=== PATIENT | female | born 1985 | race Caucasian/White ===

== ENCOUNTER 2020-07-11 09:18 | Emergency (ER) | payer OTHER ==
[~2020-07-11 09:18] MED LIST: COL-RITE250 MG PO; ECOTRIN81 MG PO; INDERAL TAB 1010 MG PO; LAMICTAL100 MG PO; PERCOCET 7.5-31 EACH PO; PRENATAL VITAM1 EAC3 PO; PROZAC20 MG PO; PROZAC40 MG PO; VISTARIL25 MG PO; ZANTAC150 MG PO; ZOFRAN4 MG PO
[2020-07-11 09:53] LABS: HEMOGLOBIN 15.1 gm/dl (12.3-15.3); RED BLOOD COUNT 4.67 M/UL (4.00-5.10); WHITE BLOOD COUNT 8.7 K/UL (4.5-11.0)
[2020-07-11 10:14] LABS: BUN/CREATININE RATIO 13 (0-10)
[2020-07-25] MEDS ORDERED: LATANOPROST2.5 ML OP (09:17)
[2020-07-25] MEDS ORDERED: LUMIGAN 0.01%2.5 ML EYEBOTH (09:24)
[2020-07-25] MEDS ORDERED: VITAMIN D375 MCG PO (09:25)
[2020-07-25] MEDS ORDERED: PROTONIX40 MG PO (12:00)
== END 2020-07-11 13:03 | disposition home or self-care (01) ==
LOC: ER1 09:18
PROVIDERS: Student in an Organized Health Care Education/Training Program
DX: K76.9 Liver disease, unspecified (principal); R19.07 Generalized intra-abdominal and pelvic swelling, mass and lump; I10 Essential (primary) hypertension; Z88.2 Allergy status to sulfonamides; Z90.89 Acquired absence of other organs
CPT/HCPCS: 80053; 81001; 82550; 82553; 83690; 83874; 83880; 84484; 84702; 85025; 85610; 99284; Q9967

== ENCOUNTER → 2020-07-25 | Day surgery (SDC) | payer OTHER ==
[~2020-07-25] MED LIST changes: +LATANOPROST2.5 ML OP; +LUMIGAN 0.01%2.5 ML EYEBOTH; +PROTONIX40 MG PO; +VITAMIN D375 MCG PO
[2020-07-26 07:10] LABS: HBSAG SCREEN Negative (Negative); HEP A AB, IGM Negative (Negative); HEP B CORE AB, IGM Negative (Negative); HEP C VIRUS AB <0.1 (0.0-0.9)
[2020-07-26 14:13] LABS: MITOCHONDRIAL (M2) ANTIBODY <20.0 Units (0.0-20.0)
[2020-07-27 16:11] LABS: TRYPSIN 497 ng/mL (169-773)
== END | disposition home or self-care (01) ==
LOC: OR 08:51
PROVIDERS: Internal Medicine Gastroenterology
DX: K29.50 Unspecified chronic gastritis without bleeding (principal); K21.9 Gastro-esophageal reflux disease without esophagitis; F17.290 Nicotine dependence, other tobacco product, uncomplicated; I10 Essential (primary) hypertension; E66.9 Obesity, unspecified; Z88.2 Allergy status to sulfonamides; Z88.1 Allergy status to other antibiotic agents; Z83.3 Family history of diabetes mellitus; Z82.49 Family history of ischemic heart disease and other diseases of the circulatory system; Z68.30 Body mass index [BMI] 30.0-30.9, adult
CPT/HCPCS: 80074; 82728; 83519; 83540; 83550; 84703; 86038; J2250; J2704; J3010; J7040